=== PATIENT | male | born 1960 | race Caucasian/White ===

== ENCOUNTER 2024-05-29 12:20 | Day surgery (SDC) | payer OTHER, SELFPAY ==
[2024-05-29] VITALS (9 sets, daily range): BP systolic 120–144; BP diastolic 70–87; PULSE 48–62; RESP 11–19; TEMP 36.2–36.7; O2SAT 93–98; BMI 38.0
[2024-05-29] MEDS: DiphenhydrAMINE INJ 50 MG/ML VIAL 25 MG IV (14:33)
[2024-05-29] MEDS: fentaNYL CIT INJ 50 mCg/ML AMP 2ML (ASD USE ONLY) IV (14:38)
[2024-05-29] MEDS: MIDAZOLAM INJ 1 MG/ML VIAL 2 ML (ASD USE ONLY) 2 MG IV (14:38)
--- NOTE | 2024-05-29 15:51 | SUR.PHASEII ---
1525 Pt awake and alert. Deneis pain or N/V. Abd remains soft. David po fluids. 1537 Pt assessment unchanged. No complaints. Amb with steady gait. Able to dress self. Pt and brother, Jun, given dc instructions. Both aware of restriction on driving for 24 hours and state understanding. Pt meets dc criteria-to home.
== END 2024-05-29 15:37 | disposition home or self-care (01) ==
PROVIDERS: PCP Family Medicine; Referring Provider Specialist; Visit Provider Specialist
PROC: 0DBE8ZX Excision of Large Intestine, Via Natural or Artificial Opening Endoscopic, Diagnostic (ICD-10-PCS; CPT 45380; principal; 2024-05-29 12:45)
DX: Z12.11 Encounter for screening for malignant neoplasm of colon (principal); D12.4 Benign neoplasm of descending colon; K64.9 Unspecified hemorrhoids; K57.30 Diverticulosis of large intestine without perforation or abscess without bleeding; K63.5 Polyp of colon
CPT/HCPCS: 45380; 45385; A4649; J1200; J2250; J3010